=== PATIENT | female | born 1980 | race Caucasian/White ===

== ENCOUNTER 2017-12-06 06:40 | Inpatient (IN) | payer OTHER ==
[2017-12-06] MEDS ORDERED: METHYLERGONOVINE 0.2 MG INJ IM ×2 (07:00→10:00)
[2017-12-06] MEDS ORDERED: MISOPROSTOL 200 MCG TAB PR ×2 (07:00→10:00)
[2017-12-06] MEDS ORDERED: OXYTOCIN 10 UNIT INJ ×2 (07:00→08:40)
[2017-12-06] MEDS ORDERED: OXYTOCIN 30 UNITS/LR 500 ML IV (07:00)
[2017-12-06] MEDS ORDERED: CARBOPROST 250 MCG INJ IM ×2 (07:00→10:00)
[2017-12-06] MEDS ORDERED: OXYTOCIN 30 UNITS/LR 500 ML BAG IV (07:00)
[2017-12-06 08:13] LABS: ADD MAN DIFF? NO
[2017-12-06] MEDS: CEFAZOLIN 2 GM/50 ML (PMX) 50 ML IV (08:14)
[2017-12-06] MEDS: LACTATED RINGER'S 1,000 ML IV ×3 (08:28→16:10)
[2017-12-06 08:32] LABS: BASOPHILS % 0.3 % (0.0-2.0); EOSINOPHILS # 0.1 10^3/ul (0.0-0.5); EOSINOPHILS % 0.8 % (0.0-7.0); HEMATOCRIT 32.3 % (37.0-47.0); HEMOGLOBIN 11.2 g/dl (12.0-16.0); LYMPHOCYTES % 27.2 % (15.0-51.0); MEAN CORPUSCULAR HEMOGLOBIN 31.1 pg (29.0-33.0); MEAN CORPUSCULAR HGB CONC 34.7 g/dl (32.0-37.0); MEAN CORPUSCULAR VOLUME 89.7 fl (82.0-101.0); MEAN PLATELET VOLUME 12.5 fl (7.4-10.4); MONOCYTE # 0.4 10^3/ul (0.3-0.9); MONOCYTES % 5.6 % (0.0-11.0); NEUTROPHIL # 4.8 10^3/ul (1.6-7.5); NEUTROPHILS % 65.8 % (39.0-77.0); PLATELET COUNT 158 10^3/UL (140-415); RED CELL DISTRIBUTION WIDTH 14.4 % (11.5-14.5)
[2017-12-06 08:32] LABS: WHITE BLOOD COUNT 7.3 10^3/ul (4.8-10.8)
[2017-12-06] MEDS ORDERED: PHENYLephrine (100 MCG/ML) 5ML SYG (08:40)
[2017-12-06] MEDS ORDERED: ONDANSETRON 4 MG INJ (08:40)
[2017-12-06] MEDS ORDERED: morphine SULFATE/PF (10 MG/10 ML) INJ (08:40)
[2017-12-06 08:46] LABS: INR 0.93; PROTIME 12.6 Sec (11.9-14.9)
[2017-12-06 08:47] LABS: PARTIAL THROMBOPLASTIN TIME 30.5 Sec (25.0-35.0)
[2017-12-06] MEDS ORDERED: morphine 2 MG INJ IV (10:00)
[2017-12-06] MEDS ORDERED: HYDROCODONE/APAP (5/325) TAB PO ×2 (10:00)
[2017-12-06] MEDS ORDERED: ACETAMINOPHEN 325 MG TAB PO (10:00)
[2017-12-06] MEDS ORDERED: SENNA/DOCUSATE NA (8.6MG/50MG) TAB PO (10:00)
[2017-12-06] MEDS ORDERED: DIPHENHYDRAMINE 25 MG CAP PO (10:00)
[2017-12-06] MEDS ORDERED: NALOXONE (0.4 MG/ML) INJ IV (10:00)
[2017-12-06] MEDS ORDERED: ONDANSETRON 4 MG INJ IV ×2 (10:00)
[2017-12-06] MEDS: KETOROLAC 30 MG INJ IV (11:43)
[2017-12-06] MEDS: DIPHENHYDRAMINE 50 MG INJ IV (11:43)
[2017-12-06] MEDS: OXYTOCIN 30 UNITS/LR 500 ML IV (11:48)
[2017-12-06] MEDS ORDERED: CEFAZOLIN 2 GM/50 ML (PMX) 50 ML IV (14:00)
[2017-12-06 15:20] LABS: RAPID PLASMA REAGIN NONREACTIVE (NR)
[2017-12-06] MEDS: CEFAZOLIN 2 GM/50 ML (PMX) 50 ML IVPB (17:44)
[2017-12-06] MEDS: SENNA/DOCUSATE NA (8.6MG/50MG) TAB PO (21:00)
[2017-12-06] MEDS: MAGNESIUM HYDROXIDE 30ML CUP PO (21:00)
[2017-12-07] MEDS: DIPHENHYDRAMINE 50 MG INJ IV (00:42)
[2017-12-07] MEDS: LACTATED RINGER'S 1,000 ML IV ×3 (00:42→16:30)
[2017-12-07] MEDS: CEFAZOLIN 2 GM/50 ML (PMX) 50 ML IVPB ×2 (02:15→09:30)
[2017-12-07] MEDS ORDERED: OXYCODONE/ASPIRIN (4.88/325) TAB PO (09:00)
[2017-12-07] MEDS: SENNA/DOCUSATE NA (8.6MG/50MG) TAB PO ×2 (09:30→20:39)
[2017-12-07] MEDS: MAGNESIUM HYDROXIDE 30ML CUP PO ×2 (09:30→20:40)
[2017-12-07] MEDS: LANOLIN 7 GM TUBE TOP (09:30)
[2017-12-07] MEDS: OXYCODONE/ASPIRIN (4.88/325) TAB PO (09:31)
[2017-12-07 10:50] LABS: ADD MAN DIFF? NO
[2017-12-07 10:56] LABS: WHITE BLOOD COUNT 6.9 10^3/ul (4.8-10.8)
[2017-12-07 10:56] LABS: BASOPHILS % 0.1 % (0.0-2.0); EOSINOPHILS # 0.1 10^3/ul (0.0-0.5); EOSINOPHILS % 0.9 % (0.0-7.0); HEMATOCRIT 29.8 % (37.0-47.0); LYMPHOCYTES # 1.2 10^3/ul (0.8-2.9); MEAN CORPUSCULAR HEMOGLOBIN 30.2 pg (29.0-33.0); MEAN CORPUSCULAR HGB CONC 33.6 g/dl (32.0-37.0); MEAN PLATELET VOLUME 12.2 fl (7.4-10.4); MONOCYTE # 0.3 10^3/ul (0.3-0.9); MONOCYTES % 3.9 % (0.0-11.0); NEUTROPHIL # 5.3 10^3/ul (1.6-7.5); NEUTROPHILS % 76.7 % (39.0-77.0); PLATELET COUNT 131 10^3/UL (140-415); RED BLOOD COUNT 3.31 10^6/ul (4.20-5.40); RED CELL DISTRIBUTION WIDTH 14.6 % (11.5-14.5)
[2017-12-07 11:42] LABS: HEPATITIS B SURFACE ANTIGEN NEGATIVE (NEGATIVE)
[2017-12-07] MEDS: IBUPROFEN 600 MG TAB PO ×3 (12:29→23:41)
[2017-12-07] MEDS: FERROUS SULFATE (EC) 325 MG TAB PO (20:39)
[2017-12-08] MEDS: LACTATED RINGER'S 1,000 ML IV ×3 (00:30→16:30)
[2017-12-08] MEDS: OXYCODONE/ASPIRIN (4.88/325) TAB PO ×3 (02:18→21:16)
[2017-12-08] MEDS: IBUPROFEN 600 MG TAB PO ×3 (06:23→18:14)
[2017-12-08] MEDS: SENNA/DOCUSATE NA (8.6MG/50MG) TAB PO ×2 (09:14→21:15)
[2017-12-08] MEDS: MAGNESIUM HYDROXIDE 30ML CUP PO ×2 (09:14→21:15)
[2017-12-08] MEDS: FERROUS SULFATE (EC) 325 MG TAB PO ×2 (09:14→21:15)
[2017-12-09] MEDS: LACTATED RINGER'S 1,000 ML IV ×2 (00:30→08:30)
[2017-12-09] MEDS: IBUPROFEN 600 MG TAB PO ×3 (00:45→11:06)
[2017-12-09] MEDS: MAGNESIUM HYDROXIDE 30ML CUP PO (09:45)
[2017-12-09] MEDS: SENNA/DOCUSATE NA (8.6MG/50MG) TAB PO (09:45)
[2017-12-09] MEDS: FERROUS SULFATE (EC) 325 MG TAB PO (09:45)
[2017-12-09] MEDS: OXYCODONE/ASPIRIN (4.88/325) TAB PO (11:07)
== END 2017-12-09 14:05 | disposition home or self-care (01) | DRG 766 ==
LOC: L-D 06:40 → PP1 12:51
PROVIDERS: Obstetrics & Gynecology
PROC: 10D00Z1 Extraction of Products of Conception, Low, Open Approach (ICD-10-PCS; principal; 2017-12-06 07:30)
PROC: 0UB70ZZ Excision of Bilateral Fallopian Tubes, Open Approach (ICD-10-PCS; 2017-12-06 07:30)
DX: O34.211 Maternal care for low transverse scar from previous cesarean delivery (principal); E66.01 Morbid (severe) obesity due to excess calories; O24.429 Gestational diabetes mellitus in childbirth, unspecified control; O99.214 Obesity complicating childbirth; Z37.0 Single live birth; Z3A.39 39 weeks gestation of pregnancy; Z68.34 Body mass index [BMI] 34.0-34.9, adult; Z30.2 Encounter for sterilization
CPT/HCPCS: 85025; 85610; 85730; 86592; 86850; 86900; 86901; 86920; 87340; 88302; 99464